=== PATIENT | female | born 1985 | race African-American/Black ===

== ENCOUNTER 2025-01-04 16:02 | Emergency (ER) | payer BC, SELFPAY ==
--- NOTE | 2025-01-04 16:13 | ED.GENADULT ---
HPI - General Adult General Chief complaint: Upper Respiratory Infection Stated complaint: headache, body pain, clear vaginal discharge Source: patient Mode of arrival: ambulatory Limitations: no limitations History of Present Illness HPI narrative: Pt is a 39 y/o female presenting with multiple complaints. Pt reports headache, bodyaches, urinary urgency, clear vaginal discharge. Pt reports headache and bodyaches have been intermittent x 1 week. Reports urinary urgency and clear vaginal discharge since submerging in a hot [place] in [facility]. She denies any known exposure to COVID, flu, strep, PNA. Denies any known exposure to STI. Denies foul vaginal odor. Voices concern for chlamydia from hot spring. Has been abstinent from sexual intercourse x 1 year. No tx initiated [employer]. NO additional complaints. Related Data Home Medications ?Medication ?Instructions ?Recorded ?Confirmed ?Last Taken ?Type No Home Medications 01/04/25 01/04/25 Unknown History Allergies Allergy/AdvReac Type Severity Reaction Status Date / Time No Known Allergies Allergy Verified 01/04/25 16:16 Review of Systems Review of Systems: CONSTITUTIONAL: Reports body aches, denies fever, chills, or sweats. EYES: Denies visual changes, redness, or discharge. ENT: Denies rhinorrhea, congestion, sore throat, or otalgia. CARDIOVASCULAR: Denies chest pain, palpitations, or edema. RESPIRATORY: Denies cough or dyspnea. GASTROINTESTINAL: Denies abdominal pain, nausea, vomiting, or diarrhea. GENITOURINARY: Reports clear vaginal discharge, urinary urgency. Denies dysuria or hematuria. SKIN: Denies rash, itching, or wounds. MUSCULOSKELETAL: Denies back pain, joint pain, or myalgia. NEUROLOGIC: Reports headache, denies numbness, tingling, or weakness. PSYCH: Denies depression or anxiety. All systems reviewed & are unremarkable except as noted in HPI and below PMFSH Family History Family History Grandparent Diabetes mellitus Social History Social History Smoking status: Never smoker Alcohol intake: current Exam Narrative: GENERAL: Well-appearing, well-nourished, and in no acute distress. HEAD: Normocephalic, atraumatic. EYES: EOMI. No redness or drainage. Conjunctivae normal. ENT: Mucous membranes pink and moist. Nares clear. No rhinorrhea. TMs normal bilaterally. Throat normal. Uvula midline. NECK: Normal AROM. Supple. No lymphadenopathy. CHEST: No respiratory distress. Clear to auscultation. HEART: Regular rate and rhythm. No murmur appreciated. Normal peripheral pulses. ABDOMEN: Soft, nontender, nondistended, normal active bowel sounds. No CVAT MUSCULOSKELETAL: No bony tenderness. EXTREMITIES: Normal range of motion. No edema. SKIN: Warm, dry, no rash. Capillary refill normal. Normal skin turgor. NEURO: No focal deficits. Alert and oriented x3. Gait steady. PSYCH: Normal affect. No signs of depression or anxiety. Course Course Level of Care: Express Care Visit Vital Signs Vital signs: Vital Signs Temperature 97.8 F 01/04/25 16:16 Pulse Rate 91 01/04/25 16:16 Respiratory Rate 16 01/04/25 16:16 Blood Pressure 132/87 01/04/25 16:16 Pulse Oximetry 100 01/04/25 16:16 Temperature 97.8 F 01/04/25 16:16 Pulse Rate 91 01/04/25 16:16 Respiratory Rate 16 01/04/25 16:16 Blood Pressure 132/87 01/04/25 16:16 Pulse Oximetry 100 01/04/25 16:16 Medical Decision Making Vital Signs Vital Signs: Vital Signs Temperature 97.8 F 01/04/25 16:16 Pulse Rate 91 01/04/25 16:16 Respiratory Rate 16 01/04/25 16:16 Blood Pressure 132/87 01/04/25 16:16 Pulse Oximetry 100 01/04/25 16:16 Temperature 97.8 F 01/04/25 16:16 Pulse Rate 91 01/04/25 16:16 Respiratory Rate 16 01/04/25 16:16 Blood Pressure 132/87 01/04/25 16:16 Pulse Oximetry 100 01/04/25 16:16 Lab Data Lab results reviewed: Yes I reviewed the patient's lab results. Labs: Lab Results 01/04/25 Range/Units 16:30 POC Urine Color Yellow POC Urine Clarity Clear POC Urine pH 7.0 POC Ur Specif [place] 1.010 POC Urine Protein Negative (Negative) POC Ur Glucose (UA) Negative (Negative) POC Urine Ketones Negative (Negative) POC Urine Blood Trace (Negative) POC Urine Nitrite Negative (Negative) POC Urine Bilirubin Negative (Negative) POC Urine Urobilinogen 0.2 POC U Leukocyte Esteras Negative (Negative) Discharge Plan Discharge Clinical Impression: Urinary urgency, Viral infection Patient Disposition: Home Condition: Stable Instructions: Viral Syndrome (ED) Additional Instructions: Go straight to ER should your symptoms become worse or should any new symptoms develop Patient Language: Palau[place] Prescriptions: No Action No Home Medications Follow-up/Referrals: Rachel Duncan MD [Primary Care Provider] - 01/05/25 Time of Disposition: 16:39
[2025-01-04 16:16] VITALS: BP 132/87; PULSE 91; RESP 16; TEMP 36.6; O2SAT 100
[2025-01-04 16:32] LABS: EDUAAPPEAR Clear; EDUABILI Negative (Negative); EDUABLOOD Trace (Negative); EDUACOLOR1 Yellow; EDUAGLUCOSE Negative (Negative); EDUAKETONE Negative (Negative); EDUALEUKO Negative (Negative); EDUANITRATE Negative (Negative); EDUAPH 7.0; EDUAPROTEIN Negative (Negative); EDUASPGRAVITY 1.010; EDUAUROBILI 0.2
== END 2025-01-04 16:41 | disposition home or self-care (01) ==
PROVIDERS: Emergency Provider Registered Nurse; PCP Family Medicine
DX: R39.15 Urgency of urination (principal); B34.9 Viral infection, unspecified
CPT/HCPCS: 81003; 99212; G0463